=== PATIENT | female | born 2000 | race Caucasian/White ===

== ENCOUNTER 2021-05-05 20:31 | Emergency (ER) | payer OTHER ==
[~2021-05-05] VITALS: Ht 165.1 cm; Wt 77.1 kg
[2021-05-05] MEDS ORDERED: METHYLPREDNISOL32 MG PO (20:54)
[2021-05-05] MEDS ORDERED: SERTRALINE HCL100 MG PO (20:55)
[2021-05-05] MEDS ORDERED: CELLCEPT250 MG PO (20:56)
[2021-05-05] MEDS ORDERED: ULTRAM 50MG TAB50 MG PO (20:57)
[2021-05-05] MEDS ORDERED: OMEPRAZOLE 20 M20 M1 PO (20:57)
[2021-05-05] MEDS ORDERED: CELLCEPT 250 M250 MG PO (20:57)
[2021-05-05] MEDS ORDERED: PROPRANOLOL 20M20 M1 PO (20:58)
[2021-05-05] MEDS ORDERED: URSODIOL200 MG PO (20:59)
[2021-05-05] MEDS ORDERED: IRON18 M1 PO (20:59)
[2021-05-05] MEDS ORDERED: VITAMIN A10000 UNI3 PO (21:00)
[2021-05-05] MEDS ORDERED: VITAMIN D310 MC3 PO (21:00)
[2021-05-05] MEDS ORDERED: BENADRYL25 MG PO (21:01)
[2021-05-05] MEDS ORDERED: TYLENOL325 M1 PO (21:01)
[2021-05-05 21:13] LABS: URINE BILIRUBIN NEGATIVE (Negative); URINE BLOOD NEGATIVE (Negative); URINE CLARITY CLEAR; URINE COLOR YELLOW; URINE GLUCOSE-RANDOM* NEGATIVE (Negative); URINE KETONES NEGATIVE (Negative); URINE LEUKOCYTES-REFLEX NEGATIVE (Negative); URINE NITRITE-REFLEX NEGATIVE (Negative); URINE PROTEIN (DIPSTICK) NEGATIVE (Negative); URINE UROBILINOGEN 0.2 E.U./dl (0.2-1.0)
[2021-05-05 21:28] LABS: CALCIUM 8.9 mg/dL (8.5-10.1); CREATININE 0.6 mg/dL (0.6-1.0)
[2021-05-05 21:29] LABS: HEMATOCRIT 39.6 % (37.0-47.0); HEMOGLOBIN 13.6 gm/dL (12.0-15.0); MCHC 34.4 g/dL (28.0-37.0); MCV 90.2 fL (80.0-100.0); RBC 4.39 mil/uL (4.20-5.00); RDW 14.5 % (10.5-14.5); WBC 6.3 thou/uL (4.0-11.0)
[2021-05-05 21:34] LABS: ALBUMIN 3.8 g/dL (3.4-5.0); TOTAL BILIRUBIN 1.4 mg/dL (0.2-1.0); TOTAL PROTEIN 7.9 g/dL (6.4-8.2)
[2021-05-06] MEDS ORDERED: NORCO5 PO ×3 (01:20→01:39)
[2021-05-06 01:45] VITALS: BP 120/82
== END 2021-05-06 01:46 | disposition home or self-care (01) ==
LOC: ER 20:31
PROVIDERS: Nurse Practitioner Family
DX: U07.1 COVID-19 (principal); L74.0 Miliaria rubra; R74.01 Elevation of levels of liver transaminase levels; K74.60 Unspecified cirrhosis of liver; Z90.89 Acquired absence of other organs; Z79.891 Long term (current) use of opiate analgesic; Z79.899 Other long term (current) drug therapy; Z79.1 Long term (current) use of non-steroidal anti-inflammatories (NSAID); Z91.041 Radiographic dye allergy status; Z88.8 Allergy status to other drugs, medicaments and biological substances